=== PATIENT | male | born 1965 | race African-American/Black ===

== ENCOUNTER 2021-07-11 11:07 | Emergency (ER) | payer OTHER, SELFPAY ==
[2021-07-11] VITALS (19 sets, daily range): BP systolic 85–109; BP diastolic 62–78; PULSE 89–109; RESP 16–36; TEMP 36.7; O2SAT 99–100
--- NOTE | ~2021-07-11 | CT_ITS ---
EXAMINATION: CT brain wo con DATE: 07/11/2021 14:16 INDICATION: Fall with head trauma supra therapeutic INR. TECHNIQUE: Computed tomography (CT) of the head was performed without intravenous contrast. Sagittal and coronal reconstructions were performed. The mA was adjusted according to patient size. Iterative reconstruction technique was employed. The dose-length product was 756.67 mGy-cm. COMPARISON: None FINDINGS: Small right parietal scalp hematoma. No fracture. Large left subdural hematoma overlying essentially entire left cerebral hemisphere and measuring up to 1.7 cm in maximal thickness. The hematoma demonst rates mixed attenuation with both high attenuation acute blood as well as deeper region demonstrating both near CSF density and isodense likely layering hematocrit level suggesting acute on chronic hemo rrhage. There is subfalcine herniation with up to 1.9 cm left right midline shift. There is also unca l herniation as well as effacement of the sulci and significant asymmetric volume loss in the left la teral ventricle relative to the right. There are couple small foci of subarachnoid hemorrhage along t he sulci at the right frontoparietal region and an additional small focus in the left frontoparietal region.. No acute acute infarction. No abnormal masses. The orbits, paranasal sinuses and mastoid air cells are normal. IMPRESSION: 1. Large likely acute on chronic left subdural hematoma with significant both left to right subfalcin e and left uncal herniation with up to 1.9 cm left right midline shift. Dr. Kay discussed these findings with Dr. Karine maxwell at 2:10 PM. 2. A few small foci of subarachnoid hemorrhage along the right and to lesser degree left frontopariet al regions. Reviewed, dictated and finalized at location A. IMPRESSION: 1. Large likely acute on chronic left subdural hematoma with significant both l eft to right subfalcine and left uncal herniation with up to 1.9 cm left right midline shift. Dr. Kay discussed these findings with Dr. Karine hollis t 2:10 PM. 2. A few small foci of subarachnoid hemorrhage along the right and to lesser de gree left frontoparietal regions.
--- NOTE | ~2021-07-11 | XR_ITS ---
EXAMINATION: XR abdomen NG/feed tube insert INDICATION: Nasogastric tube placement TECHNIQUE: Portable AP KUB-NG at 1414 hours COMPARISON: None available FINDINGS: The nasogastric tube is followed as far as the stomach. Its tip is beyond the inferior akbar in of the radiograph. Surgical clips in the right upper quadrant are likely from prior cholecystectom y. Midline epigastric calcifications likely reflect sequela of chronic pancreatitis. IMPRESSION: 1. Nasogastric tube in the stomach. Reviewed, dictated and finalized at location A.
--- NOTE | ~2021-07-11 | XR_ITS ---
EXAMINATION: XR chest ET placement INDICATION: Endotracheal tube placement TECHNIQUE: Portable AP chest at 1414 hours COMPARISON: None available FINDINGS: The endotracheal tube ends approximately 5.1 cm above the radha. The nasogastric tube is f ollowed as far as the stomach. Its tip is beyond the inferior margin of the radiograph. There are pat gideon opacities of the lungs. The cardiomediastinal silhouette is normal. No pleural effusion or pneumo thorax is identified. IMPRESSION: 1. Endotracheal tube approximately 5.1 cm above the radha. 2. Patchy bilateral opacities, consistent with atelectasis versus pneumonia. Reviewed, dictated and finalized at location A.
[2021-07-11 11:14] LABS: Glucose Point of Care 88 mg/dl (65-105)
--- NOTE | 2021-07-11 11:36 | ECG_ITS ---
Measurements Intervals [place] Rate: 98 P: 71 HI: 156 QRS: 66 QRSD: 97 T: 76 QT: 390 QTc: 499 Interpretive Statements SINUS RHYTHM NONSPECIFIC T-WAVE ABNORMALITY- DIFFUSE LEADS BASELINE ARTIFACT- II, III, AVF, V1, V3-V6 BORDERLINE ECG Electronically Signed On 07-11-2021 12:17:39 CDT by Lester Camarena D.O.
[2021-07-11] MEDS: SODIUM CHLORIDE 0.9% IV 1,000 ML 999 ML IV CONT (12:09)
[2021-07-11 12:20] LABS: Basophils Absolute Auto 0.1 K/mm3 (0.0-0.1); Basophils Percent Auto 0.4 % (0.2-1.2); Eosinophils Absolute Auto 0.1 K/mm3 (0-0.3); Eosinophils Percent Auto 0.1 % (0-4.4); Hematocrit 33.2 % (42.0-52.0); Hemoglobin 11.2 g/dL (14.0-18.0); Immature Granulocyte Absolute 0.76 K/mm3 (0.00-0.031); Immature Granulocyte Percent A 2.1 % (0-0.5); Immature Platelet Fraction Pct 13.5 % (0.9-11.2); Lymphocytes Absolute Auto 2.29 K/mm3 (0.9-3.2); Lymphocytes Percent Auto 6.4 % (18.3-44.2); Mean Corpuscular HGB Conc 33.7 g/dl (32-36); Mean Corpuscular Hemoglobin 30.1 pg (26-34); Mean Corpuscular Volume 89.2 fl (80-100); Mean Platelet Volume 12.5 fl (7.4-10.4); Monocytes Absolute Auto 2.1 K/mm3 (0.1-0.6); Neutrophils Absolute Auto 30.3 K/mm3 (1.3-6.7); Nucleated Red Blood Cells Perc 0.1 % (0.0-0.2); Platelet Count Result 86 k/mm3 (150-375); Red Blood Count 3.72 M/mm3 (4.6-6.20); Red Cell Distribution Width 19.8 % (11.5-14.5); White Blood Count 35.7 K/mm3 (4.5-10.0)
[2021-07-11 12:31] LABS: Alanine Aminotransferase 77 U/L (4-50); Albumin Level 2.4 g/dL (3.5-5.1); Alkaline Phosphatase 343 U/L (38-126); Anion Gap 12 mmol/L (8-16); Aspartate Amino Transferase 488 U/L (17-59); Bilirubin,Total 8.4 mg/dL (0.2-1.3); Blood Urea Nitrogen 12 mg/dL (9-20); Carbon Dioxide 19 mmol/L (22-30); Chloride 94 mmol/L (98-107); Estimated CRCL calculation 52 ml/min; Estimated Glomerular Filt Rate > 60; Glucose 88 mg/dL (65-110); Potassium 4.9 mmol/L (3.4-5.0); Prothrombin Time 69.6 Seconds (11.1-14.7); Sodium 125 mmol/L (137-145)
[2021-07-11 12:42] LABS: Target Cells 2+ (NORMAL)
[2021-07-11 12:43] LABS: Troponin I < 0.012 ng/mL (0.000-0.034)
[2021-07-11 13:10] LABS: INR 8.9
[2021-07-11 13:24] LABS: Add Urine Microscopic? YES; Appearance Urine Clear (Clear); Bilirubin Urine 2+ (Negative); Blood Urine Negative (Negative); Color Urine Amber (Yellow); Glucose Urine UA Negative (Negative); Granular Casts Urine 20-29 /lpf; Ketones Urine Negative (Negative); Leukocyte Esterase Ur Negative LEU/UL (Negative); Mucus Urine Rare /lpf; Nitrate Urine Positive (Negative); Protein Urine 2+ mg/dL (Negative); Specific Grav Ur 1.024 (1.001-1.035)
[2021-07-11 14:05] LABS: Ammonia 70 umol/L (9-30)
[2021-07-11] MEDS: PHYTONADIONE ADULT INJ 10 MG in DEXTROSE 5% IN WATER 50 ML 100 MG IVPB (14:24)
--- NOTE | 2021-07-11 14:27 | ED.GENADULT ---
HPI - General Adult General Chief complaint: Fall Stated complaint: fall with head injury Time Seen by Provider: 07/11/21 11:15 Source: RN notes reviewed Mode of arrival: wheelchair Limitations: altered mental status History of Present Illness HPI narrative: 56-year-old with a history of hypertension, diabetes, smoker, history of alcohol abuse was sent from radiology department with complaints of fall. Patient was scheduled for ultrasound-guided liver biopsy. Not much of history could be obtained from the patient, did call his oncologist Dr. Lozano as per the conversation patient has a pancreatic mass and liver mass ,was scheduled for biopsy this morning. His primary doctor is in [place]. Do not have much of his medical records in this hospital. Onset (ago): minute(s) (15) Related Data Home Medications Medication Instructions Recorded Confirmed acamprosate 333 mg PO BID 07/01/21 07/01/21 albuterol sulfate [Ventolin HFA] 2 puff INHALATION QID PRN 07/01/21 07/01/21 aspirin [Aspir-81] 81 mg PO DAILY 07/01/21 07/01/21 citalopram 40 mg PO DAILY 07/01/21 07/01/21 dicyclomine 20 mg PO TID 07/01/21 07/01/21 ibuprofen 600 mg PO QID PRN 07/01/21 07/01/21 lovastatin 20 mg PO DAILY 07/01/21 07/01/21 multivitamin 1 tablet PO DAILY 07/01/21 07/01/21 naltrexone 50 mg PO DAILY 07/01/21 07/01/21 olanzapine 10 mg PO DAILY 07/01/21 07/01/21 olanzapine 20 mg PO HS 07/01/21 07/01/21 pantoprazole 40 mg PO QAM 07/01/21 07/01/21 trazodone 100 mg PO HS 07/01/21 07/01/21 Allergies Allergy/AdvReac Type Severity Reaction Status Date / Time No Known Allergies Allergy Verified 07/01/21 08:18 Review of Systems Review of Systems: ROS unobtainable: Yes unobtainable due to mental status Exam Narrative: GENERAL: ill -appearing, thin, and in no acute distress.very slow to respond HEAD: Normocephalic, atraumatic. EYES: PERRLA and EOMI. scleral icterus ENT: Nares clear, no rhinorrhea or epistaxis. Mucous membranes moist. NECK: Supple. CHEST: Clear to auscultation. No respiratory distress. HEART: Regular rate and rhythm. No murmur heard. Normal peripheral pulses. ABDOMEN: Soft, nontender, nondistended, normal active bowel sounds. EXTREMITIES: Normal range of motion. No edema. SKIN: Warm, dry, no rash. NEURO: No focal deficits. Alert Course Course Emergency Course: Initially when patient arrived to the ER had no history from the patient nor from the nursing , all of her stool that he fell at the radiology department. Did call the radiologist as per Dr. Lira patient was scheduled for ultrasound-guided biopsy of his liver. His referring doctor was Dr. Alexander. I did call Dr. Lozano gave me a brief history that patient has been diagnosed with pancreatic mass as well as a hepatic mass was scheduled for PET scan and liver biopsy. His primary referring doctor is in [place] . I did obtain a CT of his head which shows a large subdural bleed. Discussed with his sister who gave me a brief medical history. She wants everything done. His sister is at the bedside , informed her about his lab and CT findings , wants everything done. Vital Signs Vital signs: Vital Signs Temperature 36.7 C 07/11/21 11:19 Pulse Rate 101 H 07/11/21 11:19 Respiratory Rate 16 07/11/21 11:19 Blood Pressure 99/76 L 07/11/21 11:19 Pulse Oximetry 100 07/11/21 11:19 Temperature 36.7 C 07/11/21 11:19 Pulse Rate 94 07/11/21 14:19 Respiratory Rate 22 H 07/11/21 14:19 Blood Pressure 109/70 07/11/21 14:19 Pulse Oximetry 99 07/11/21 14:19 Procedures Intubation Intubation #1: Intubation Date: 07/11/21 Intubation Time: 13:50 sedative: Etomidate Mg Given: 10 paralytic: Rocuronium Mg Given: 50 Laryngoscope: Joseph (4) Assist Device Used: fiber optic device Tube Size (cm): 6.0 Method of Intubation: orotracheal Number of Attempts: 3 Tube Secured Location: teeth
[2021-07-11] MEDS: ROCURONIUM BROMIDE 50 MG/5 ML VIAL IV PUSH (14:45)
[2021-07-11] MEDS: ETOMIDATE 20 MG/10 ML AMPUL 10 MG IV PUSH (14:45)
--- NOTE | 2021-07-11 15:08 | PC.NURSE ---
patient intubated with 6.0 et tube by erp. 27 taped at lips. vent setting 4/50 peep 5,50 rATE OF 18. LEWIS CATH INSERTED WELL 16F OG TUBE
--- NOTE | 2021-07-11 15:27 | ECG_ITS ---
Measurements Intervals [place] Rate: 86 P: 72 AR: 149 QRS: 64 QRSD: 92 T: 70 QT: 423 QTc: 508 Interpretive Statements SINUS RHYTHM NONSPECIFIC T-WAVE ABNORMALITY- ANT/HIGH LAT LEADS PROLONGED QT INTERVAL ABNORMAL ECG Electronically Signed On 07-11-2021 16:57:31 CDT by Lester Camarena D.O.
--- NOTE | 2021-07-11 15:46 | PC.NURSE ---
report called to [facility]. patient transported by air evac
== END 2021-07-11 15:49 | disposition short-term general hospital (02) ==
PROVIDERS: Emergency Provider Family Medicine; PCP Internal Medicine Infectious Disease
DX: S06.5X0A Traumatic subdural hemorrhage without loss of consciousness, initial encounter (principal); K86.9 Disease of pancreas, unspecified; R16.0 Hepatomegaly, not elsewhere classified; Z79.82 Long term (current) use of aspirin; R94.31 Abnormal electrocardiogram [ECG] [EKG]; W19.XXXA Unspecified fall, initial encounter
CPT/HCPCS: 31500; 36415; 70450; 80053; 81001; 82140; 82948; 84484; 85025; 85055; 85610; 87086; 93005; 96361; 96365; 96375; 99291; J3430; J7030